=== PATIENT | male | born 1965 | race Caucasian/White ===

== ENCOUNTER 2024-04-05 08:53 | Outpatient (CLI) | payer OTHER ==
--- NOTE | 2024-04-07 12:51 | MRI Report ---
PROCEDURE: Cervical Spine WO INDICATIONS: CERVICAL RADICULOPATHY TECHNIQUE: Multiplanar multisequential MRI of the cervical spine was obtained without contrast. COMPARISON: None. FINDINGS: Alignment and Curvature: Reversal the normal cervical lordosis. Bone Marrow: C5-6 and C6-7 discectomy and fusion with anterior plate and screw hardware Spinal Cord: Visualized spinal cord has normal size and signal. No cerebellar tonsillar herniation. Paraspinal Soft Tissues: No paravertebral masses. Prevertebral soft tissues are normal in thickness . C2-C3: Normal in appearance. C3-C4: Normal in appearance. C4-C5: Posterior disc osteophyte complex. Mild central stenosis. Arthropathy. Moderate left foramina l stenosis. No right foraminal stenosis. C5-C6: Discectomy and fusion. No central stenosis. Uncovertebral arthropathy associated with moderat e right foraminal and no left foraminal stenosis C6-C7: Discectomy and fusion. No central stenosis. No foraminal stenosis C7-T1: Normal in appearance. IMPRESSION: Multilevel degenerative disc disease and arthropathy results in varying degrees of central and forami nal stenosis including moderate foraminal stenosis C4-5 and C5-6. Instrumented C5-6 and C6-7 discectomy and fusion Reviewed by: Demetrius Severino MD on 04/07/2024 11:50 AM LINDA Approved by: Demetrius Severino MD on 04/07/2024 11:50 AM LINDA Station ID: [id number]
== END 2024-04-05 08:54 | disposition home or self-care (01) ==
LOC: DI 08:53
PROVIDERS: ATTEND Family Medicine
DX: M47.22 Other spondylosis with radiculopathy, cervical region (principal); M50.121 Cervical disc disorder at C4-C5 level with radiculopathy; M48.02 Spinal stenosis, cervical region; Z98.1 Arthrodesis status